=== PATIENT | female | born 1990 | race Two or more races ===

== ENCOUNTER 2018-12-26 13:05 | Emergency (ER) | payer OTHER ==
[~2018-12-26] VITALS: Ht 162.6 cm; Wt 59.0 kg
--- NOTE | 2018-12-26 14:48 | Emergency Room Report ---
History of Present Illness General Chief Complaint: Lower Extremity Injury Source: Patient (Zuleyka Ibarra) Present Illness HPI 28-year-old female with no symptom past medical history who is visiting [place] here complaining of 2 weeks of left ankle pain after twisting it 2 weeks ago. Patient reports that she has not been taking medication however has been applying ice with minimal relief. Patient reports that she has been walking long distances every day and working out. Denies any tingling and numbness, denies pain radiation. Rating the pain 3 out of 10 at this time. Reports that the pain is worse in the morning. Has not taken medication for pain relief. Denies all other injuries, calf tenderness, chest pain, shortness of breath, palpitation, no other associated symptoms. Reports that she was recently in the airplane for only 1 hour after the incident happened. (Zuleyka Ibarra) Allergies: Coded Allergies: No Known Allergies (Unverified , 12/26/18) Patient History Past Medical History: see triage record Past Surgical History: unable to obtain Pertinent Family History: none Last Menstrual Period: currently on it Now: No Immunizations: UTD Reviewed Nursing Documentation: PMH: Agreed; PSxH: Agreed (Zuleyka Ibarra) Nursing Documentation-PMH Past Medical History: No Stated History (Zuleyka Ibarra) Review of Systems All Other Systems: negative except mentioned in HPI (Zuleyka Ibarra) Physical Exam Vital Signs Date Time Temp Pulse Resp B/P (MAP) Pulse Ox O2 Delivery O2 Flow Rate FiO2 12/26/18 13:17 98.2 95 18 119/85 (96) 97 Room Air Sp02 EP Interpretation: reviewed, normal General Appearance: no apparent distress, alert, GCS 15, non-toxic Head: normocephalic, atraumatic Eyes: bilateral eye normal inspection, bilateral eye PERRL ENT: hearing grossly normal, normal pharynx, no angioedema, normal voice Neck: full range of motion, supple, thyroid normal, no meningismus, supple/symm /no masses Respiratory: chest non-tender, lungs clear, normal breath sounds, no rhonchi, no wheezing, speaking full sentences Cardiovascular #1: regular rate, rhythm, no edema, no murmur, normal capillary refill Gastrointestinal: normal inspection, normal bowel sounds, non tender, soft, no mass, no organomegaly Rectal: deferred Genitourinary: normal inspection, no CVA tenderness Musculoskeletal: back normal, digits/nails normal, normal range of motion, non- tender, no calf tenderness, pelvis stable, swelling - Ankle left lateral malleolus Neurologic: alert, oriented x3, responsive, motor strength/tone normal, sensory intact, speech normal Psychiatric: judgement/insight normal, memory normal, mood/affect normal, no suicidal/homicidal ideation Skin: no rash Lymphatic: no adenopathy (Zuleyka Ibarra) Medical Decision Making PA Attestation All diagnoses and treatment plans were reviewed and discussed with my supervising physician Dr. North (Zuleyka Ibarra) Diagnostic Impression: Primary Impression: Ankle sprain ER Course 28-year-old female with no symptom past medical history who is visiting [place] here complaining of 2 weeks of left ankle pain after twisting it 2 weeks ago. Patient reports that she has not been taking medication however has been applying ice with minimal relief. Patient reports that she has been walking long distances every day and working out. Denies any tingling and numbness, denies pain radiation. Rating the pain 3 out of 10 at this time. Reports that the pain is worse in the morning. Has not taken medication for pain relief. Denies all other injuries, calf tenderness, chest pain, shortness of breath, palpitation, no other associated symptoms. Reports that she was recently in the airplane for only 1 hour after the incident happened. Ddx considered but are not limited to: ankle sprain, ankle strain, ankle fracture, ankle contusion Vital signs: are WNL, pt. is afebrile H&PE are most consistent with: Left ankle sprain ORDERS: ankle x-ray, ibuprofen ED INTERVENTIONS: None required at this time. DISCHARGE: At this time pt. is stable for d/c to home. Will provide printed patient care instructions, and any necessary prescriptions. Care plan and follow up instructions have been discussed with the patient prior to discharge. Patient to follow-up with primary care provider, if worsening symptoms return to the emergency room. (Zuleyka Ibarra) Other X-Ray Diagnostic Results Other X-Ray Diagnostic Results : X-Ray ordered: Left ankle # of Views/Limited Vs Complete: 3 View Indication: Pain EP Interpretation: Yes PA Xray: Interpretation reviewed, by supervising MD, and agrees with findings. Interpretation: no dislocation, no soft tissue swelling, no fractures Impression: No acute disease Electronically Signed by: Zuleyka Caputo PA-C (Zuleyka Ibarra) Other X-Ray Diagnostic Results : Electronically Signed by: Oc Forrest documentation of Xray reviewed by me and is accurate, Moise North MD (Moise North MD) Last Vital Signs Date Time Temp Pulse Resp B/P (MAP) Pulse Ox O2 Delivery O2 Flow Rate FiO2 12/26/18 13:17 98.2 95 18 119/85 (96) 97 Room Air (Zuleyka Ibarra) Disposition: HOME, SELF-CARE Condition: Stable Scripts Ibuprofen (Ibu) 800 Mg Tablet 800 MG PO TID, #21 TAB Prov: Zuleyka Ibarra 12/26/18 Patient Instructions: Ankle Sprain Additional Instructions: Take medication as directed, follow-up with your primary care provider, if worsening symptoms return to the emergency room Zuleyka Ibarra Dec 26, 2018 14:48 Moise North MD Dec 27, 2018 00:32
[2018-12-26] MEDS ORDERED: IBU800 MG PO (14:49)
--- NOTE | 2018-12-26 14:57 | Diagnostic Imaging Report ---
Indication: left ankle pain Comparison: None Findings: 3 views of the left ankle obtained. Soft tissues are unremarkable. No acute fracture, malalignment, periostitis, or osteochondral defects are identified. Impression: No acute findings
[2018-12-26 15:00] VITALS: BP 120/80
== END 2018-12-26 15:00 | disposition home or self-care (01) ==
LOC: EMR 14:45
DX: S93.402A Sprain of unspecified ligament of left ankle, initial encounter (principal); X58.XXXA Exposure to other specified factors, initial encounter; Y93.9 Activity, unspecified; Y92.9 Unspecified place or not applicable
CPT/HCPCS: 99283